=== PATIENT | female | born 1980 | race Caucasian/White ===

== ENCOUNTER 2016-10-02 15:59 | Emergency (ER) | payer OTHER, MEDICAID ==
[~2016-10-02] VITALS: Ht 175.3 cm; Wt 106.6 kg
[~2016-10-02 15:59] MED LIST: METR500T PO; OXYC-130 PO; ROCPM1 IV
[2016-10-02 16:00] VITALS: BP_SYST 140
[2016-10-02] MEDS ORDERED: IBUPROFEN 800 MG TABLET PO ONE (17:00)
[2016-10-02 17:30] VITALS: BP_SYST 130
== END 2016-10-02 17:30 | disposition home or self-care (01) ==
LOC: SED 15:59
DX: S93.492A Sprain of other ligament of left ankle, initial encounter (principal); W18.40XA Slipping, tripping and stumbling without falling, unspecified, initial encounter; Y93.89 Activity, other specified; Y92.830 Public park as the place of occurrence of the external cause; Y99.8 Other external cause status
CPT/HCPCS: 81025; 99284

== ENCOUNTER 2021-12-07 10:20 | Day surgery (SDC) | payer BC, MEDICAID ==
[~2021-12-07] VITALS: Ht 175.3 cm; Wt 106.6 kg
[~2021-12-07 10:20] MED LIST changes: +CEFAZOLIN SOD 1 GM/ ISO 50 ML PREMIX IV ONE
[2021-12-07] MEDS ORDERED: KETOROLAC TROMETHAMINE 30 MG VIAL IVP ONE (12:21)
[2021-12-07] MEDS ORDERED: PROPOFOL 200MG/ 20ML VIAL (DIPRIVAN) IV ONE (12:21)
[2021-12-07] MEDS ORDERED: fentaNYL CITRATE/PF 100 MCG/2 ML AMP IVP ONE (12:21)
[2021-12-07] MEDS ORDERED: ONDANSETRON HCL 4 MG/2 ML VIAL IVP ONE (12:21)
[2021-12-07] MEDS ORDERED: LR 1,000 ML IV.SOLN IV ONE (12:21)
[2021-12-07] MEDS ORDERED: SEVOFLURANE 15 MIN GAS INH ONE (12:21)
[2021-12-07 12:36] LABS: HCG,QUAL RESULT NEGATIVE (NEGATIVE)
[2021-12-07] MEDS ORDERED: ONDANSETRON HCL 4 MG/2 ML VIAL IVP PRN (14:00)
[2021-12-07] MEDS ORDERED: HYDROcodone/ACETAMIN 5-325 MG TAB (NORCO/ VICODIN) PO PRN (14:00)
[2021-12-07] MEDS ORDERED: MORPHINE 4 MG INJ. 4 MG/ML VIAL IVP PRN (14:00)
[2021-12-07] MEDS ORDERED: LR 1,000 ML IV SCH (14:15)
[2021-12-07] MEDS ORDERED: LABETALOL 100 MG/ 20ML VIAL IVP PRN (14:15)
[2021-12-07] MEDS ORDERED: HYDROmorphone 1 MG/ML INJ. CARTRIDGE IVP PRN (14:15)
[2021-12-07] MEDS ORDERED: hydrALAZINE HCL 20 MG/ML VIAL IVP PRN (14:15)
[2021-12-07 14:30] VITALS: BP_SYST 133
== END 2021-12-07 15:30 | disposition home or self-care (01) ==
LOC: EEVIPCON → SDS 10:20
PROVIDERS: ATTEND Surgery
DX: C50.912 Malignant neoplasm of unspecified site of left female breast (principal); Z20.822 Contact with and (suspected) exposure to COVID-19; Z79.899 Other long term (current) drug therapy
CPT/HCPCS: 36415 ×2; 36561; 84703; 86886; 86900; 86901; 71045; 77001; 76937; 87426; U0003; J0690; J1885; J2405; J2704; J3010; J7120; C1788; 76000

== ENCOUNTER 2023-09-04 05:50 | Inpatient (IN) | payer BC, MEDICAID ==
[~2023-09-04] VITALS: Ht 175.3 cm; Wt 103.4 kg
[~2023-09-04 05:50] MED LIST changes: -CEFAZOLIN SOD 1 GM/ ISO 50 ML PREMIX IV ONE
[2023-09-04] MEDS: ceFAZolin SODIUM 2 GM in D5W 100 ML IV ONE (07:00)
[2023-09-04] MEDS: BUPIVACAINE LIPOSOME/PF 266 MG/20 ML VIAL INFIL ONE (07:26)
[2023-09-04] MEDS ORDERED: DEXAMETHASONE SOD PHOSPHATE 4 MG/ML VIAL ONE (08:15)
[2023-09-04] MEDS ORDERED: MULT-1173 PO (08:54)
[2023-09-04] MEDS ORDERED: ASCO500T20 PO (08:54)
[2023-09-04] MEDS ORDERED: TAMO20TA4 PO (08:54)
[2023-09-04] MEDS: ACETAMINOPHEN I.V. 1000 MG 100 ML IV ONE (09:30)
[2023-09-04] MEDS ORDERED: HYDROmorphone 1 MG/ML INJ. CARTRIDGE IVP PRN (09:30)
[2023-09-04] MEDS ORDERED: KETOROLAC TROMETHAMINE 30 MG VIAL IVP PRN (09:30)
[2023-09-04] MEDS ORDERED: METOCLOPRAMIDE HCL 10 MG/2 ML VIAL IVP PRN (09:30)
[2023-09-04] MEDS ORDERED: ONDANSETRON HCL 4 MG/2 ML VIAL IVP PRN (09:30)
[2023-09-04] MEDS: LR 1,000 ML IV SCH (12:30)
[2023-09-04] MEDS ORDERED: ACETAMINOPHEN 325 MG TABLET PO PRN ×2 (12:30→13:00)
[2023-09-04 13:57] VITALS: BP_SYST 94; PULSE 77; RESP 16; TEMP 98.3; O2SAT 100
[2023-09-04] MEDS: LR 1,000 ML IV ONE (14:47)
[2023-09-04] MEDS ORDERED: CEFAZOLIN 1 GM IVPB PREMIX 50 ML IV SCH (16:00)
[2023-09-04 16:21] VITALS: BP_SYST 88; PULSE 74; RESP 14; TEMP 97.3; O2SAT 96
[2023-09-04 17:13] LABS: BASOPHILS % (AUTO) 0.4 % (0.0-2.0); HEMATOCRIT 30.9 % (36-48); HEMOGLOBIN 10.9 g/dL (12.0-16.0); LYMPHOCYTES # (AUTO) 0.5 K/uL (1.0-5.5); LYMPHOCYTES % (AUTO) 4.1 % (20.5-51.5); MEAN CORPUSCULAR HEMOGLOBIN 31 pg (27-31); MEAN CORPUSCULAR HGB CONC 35 % (32-36); MEAN CORPUSCULAR VOLUME 88 fL (79.0-98.0); MONOCYTES # (AUTO) 0.9 K/uL (0.0-1.0); MONOCYTES % (AUTO) 7.5 % (1.7-9.3); NEUTROPHILS # (AUTO) 10.8 K/uL (1.8-7.7); PLATELET COUNT (AUTO) 134 K/uL (130-430); RED BLOOD CELL COUNT(AUTO) 3.53 MIL/uL (4.2-6.2); RED CELL DISTRIBUTION WIDTH 12.2 % (9.0-15.0); WHITE BLOOD COUNT (AUTO) 12.2 K/uL (4.8-10.8)
[2023-09-04] MEDS: HYDROcodone/ACETAMIN 5-325 MG TAB (NORCO/ VICODIN) PO PRN (18:48)
[2023-09-04 20:00] VITALS: BP_SYST 88; PULSE 78; RESP 18; TEMP 98.2; O2SAT 100
[2023-09-04] MEDS: ceFAZolin SODIUM 2 GM in D5W 100 ML IV SCH (21:47)
[2023-09-04] MEDS: DOCUSATE SODIUM 250 MG CAPSULE PO SCH (21:47)
[2023-09-05] VITALS: BP_SYST 98; PULSE 71; RESP 18; TEMP 98
[2023-09-05] MEDS: MORPHINE 4 MG INJ. 4 MG/ML VIAL IVP PRN (00:22)
[2023-09-05] MEDS: ONDANSETRON HCL 4 MG/2 ML VIAL IVP PRN (04:16)
[2023-09-05 09:04] LABS: BASOPHILS % (AUTO) 0.2 % (0.0-2.0); EOSINOPHILS % (AUTO) 0.1 % (0.0-4.0); HEMATOCRIT 30.3 % (36-48); HEMOGLOBIN 10.5 g/dL (12.0-16.0); LYMPHOCYTES # (AUTO) 1.2 K/uL (1.0-5.5); LYMPHOCYTES % (AUTO) 19.5 % (20.5-51.5); MEAN CORPUSCULAR HEMOGLOBIN 31 pg (27-31); MEAN CORPUSCULAR HGB CONC 35 % (32-36); MEAN CORPUSCULAR VOLUME 89 fL (79.0-98.0); MONOCYTES # (AUTO) 0.8 K/uL (0.0-1.0); MONOCYTES % (AUTO) 12.3 % (1.7-9.3); NEUTROPHILS # (AUTO) 4.3 K/uL (1.8-7.7); NEUTROPHILS % (AUTO) 67.9 % (40.0-70.0); PLATELET COUNT (AUTO) 127 K/uL (130-430); RED BLOOD CELL COUNT(AUTO) 3.42 MIL/uL (4.2-6.2); RED CELL DISTRIBUTION WIDTH 12.5 % (9.0-15.0); WHITE BLOOD COUNT (AUTO) 6.3 K/uL (4.8-10.8)
[2023-09-05] MEDS: TAMOXIFEN CITRATE 10 MG TABLET PO SCH (09:14)
[2023-09-05] MEDS: ACETAMINOPHEN 325 MG TABLET PO PRN (09:15)
[2023-09-05 10:44] VITALS: BP_SYST 90; PULSE 94; RESP 16; TEMP 98.2; O2SAT 97
[2023-09-05] MEDS: KETOROLAC TROMETHAMINE 30 MG VIAL IVP ONE (14:15)
[2023-09-05] MEDS: OXYCODONE/ACETAMINOPHEN 5-325 TABLET PO PRN (14:24)
[2023-09-05 15:55] VITALS: BP_SYST 92; PULSE 90; RESP 16; TEMP 98.2; O2SAT 97
[2023-09-05 20:00] VITALS: BP_SYST 106; PULSE 98; RESP 18; TEMP 97.8; O2SAT 97
[2023-09-06 00:36] VITALS: BP_SYST 107; PULSE 87; RESP 16; TEMP 97.5; O2SAT 99
[2023-09-06 08:16] VITALS: BP_SYST 109; PULSE 87; RESP 20; TEMP 98.6; O2SAT 96
[2023-09-06 09:22] VITALS: O2SAT 96
[2023-09-06 12:39] VITALS: BP_SYST 109; PULSE 85; RESP 18; TEMP 98.6; O2SAT 96
[2023-09-06 13:26] VITALS: BP_SYST 109; PULSE 85; RESP 20; TEMP 98.6; O2SAT 96
== END 2023-09-06 14:05 | disposition home or self-care (01) | DRG 581 ==
LOC: SMU 05:50 → SDS 05:50 → OBSVTOIN 12:34 → SMU 12:34
PROVIDERS: ADMIT Surgery; ATTEND Surgery
PROC: 0UT10ZZ Resection of Left Ovary, Open Approach (ICD-10-PCS; 2023-09-04)
PROC: 0KBQ0ZZ Excision of Right Upper Leg Muscle, Open Approach (ICD-10-PCS; principal; 2023-09-04 08:15)
PROC: 0WBH0ZZ Excision of Retroperitoneum, Open Approach (ICD-10-PCS; 2023-09-04 08:15)
DX: D17.79 Benign lipomatous neoplasm of other sites (principal); Z90.721 Acquired absence of ovaries, unilateral; Z85.3 Personal history of malignant neoplasm of breast; K66.0 Peritoneal adhesions (postprocedural) (postinfection); Z90.710 Acquired absence of both cervix and uterus; N73.6 Female pelvic peritoneal adhesions (postinfective)
CPT/HCPCS: 36415; 85025; 87081; 88304; 88305; 97110-GP; 97116-GP; 97530-GP; A4649; C9290; J0131; J0330; J0690; J1100; J1885; J2270; J2274; J2405; J2704; J3465; J3490; J7060; J7120